=== PATIENT | male | born 1990 | race African-American/Black ===

== ENCOUNTER 2019-02-26 12:09 | Emergency (ER) | payer OTHER ==
[~2019-02-26] VITALS: Ht 172.7 cm; Wt 100.5 kg
[2019-02-26] MEDS ORDERED: ACET160S3 PO (12:18)
[2019-02-26] MEDS ORDERED: IBUP-1022 PO (12:18)
[2019-02-26] MEDS ORDERED: COLA100C5 PO (12:18)
[2019-02-26] MEDS ORDERED: LIDOCAINE 2% JELLY 6 ML SYRINGE TOP ONE (13:30)
[2019-02-26 13:43] LABS: INFLUENZA A AMPLIFICATION NEGATIVE (NEGATIVE); INFLUENZA B AMPLIFICATION NEGATIVE (NEGATIVE)
[2019-02-26] MEDS ORDERED: LIDOCAINE 2% 5ML JELLY UROJET TOP ONE (13:45)
--- NOTE | 2019-02-26 14:06 | REP ---
Oral ultrasound for left testicular pain: There are no comparisons. The right testis measures 4.43 x 2.36 x 3.14 cm. The left testis measures 4.44 x 1.8 x 2.7 cm. The testicles are normal size. With color Doppler assessment there is vascular flow in both testes. The Doppler resistive index of the parenchymal arteries in the right testis is 0.59 and the left testis 0.62. There are no testicular masses. There is a single left testicular calcification. There are two right epididymal head cysts, one measuring up to 5 mm and the other measuring up to 2 mm. The left epididymal head is unremarkable. Impression: There is vascular flow in both testes. There is no testicular mass. There is a single left testicular calculus. There are two right epididymal head cysts. Electronically Signed by José Luis Mccormack MD 02/26/2019 01:57 P
[2019-02-26 14:14] LABS: BASO % 0.3 % (0.0-1.0); EOS # 0.1 10^3/uL (0.0-0.5); EOS % 0.9 % (0.0-3.0); HEMATOCRIT 43.9 % (42.0-52.0); HEMOGLOBIN 14.5 g/dl (13.5-17.5); LYMPH # 0.9 10^3/uL (1.5-5.0); LYMPH % 7.4 % (24.0-44.0); MEAN CORPUSCULAR HEMOGLOBIN 29.8 pg (27.0-33.0); MEAN CORPUSCULAR VOLUME 90.1 fl (80.0-96.0); MONO # 1.3 10^3/uL (0.0-0.8); MONO % 11.1 % (0.0-5.0); NEUTROPHILS # 9.3 10^3/uL (1.5-8.5); NEUTROPHILS % 79.9 % (36.0-66.0); PLATELET COUNT, AUTOMATED 226 10^3/uL (150-450); RED BLOOD COUNT 4.87 10^6/uL (4.30-6.10); WHITE BLOOD COUNT 11.6 10^3/uL (4.0-10.0)
[2019-02-26 14:41] LABS: CHLAMYDIA DNA AMPLIFICATION NEGATIVE (NEGATIVE); GC DNA AMPLIFICATION NEGATIVE (NEGATIVE)
[2019-02-26 14:41] LABS: ERYTHROCYTE SEDIMENTATION RATE 5 mm/hr (0-15)
[2019-02-26 14:52] LABS: BILIRUBIN,DIRECT 0.2 MG/DL (0.0-0.2); BILIRUBIN,TOTAL 0.6 MG/DL (0.2-1.0); C REACTIVE PROTEIN QUANTITATIV 0.7 MG/DL (0.00-0.30); TOTAL PROTEIN 7.5 GM/DL (6.4-8.2)
[2019-02-26] MEDS ORDERED: PROC1AER16 PR (15:15)
[2019-02-26] MEDS ORDERED: ANEC4CRE3 TOP (15:15)
[2019-02-26 15:20] VITALS: BP 124/73
== END 2019-02-26 15:22 | disposition home or self-care (01) ==
LOC: M ED 12:09
DX: N50.812 Left testicular pain (principal); R50.9 Fever, unspecified; K64.8 Other hemorrhoids; Z88.8 Allergy status to other drugs, medicaments and biological substances
CPT/HCPCS: 76870; 80047; 80076; 81001; 83605; 85025; 85652; 86140; 87502; 87661; 93976; 99284; G0463